=== PATIENT | female | born 1985 | race Caucasian/White ===

== ENCOUNTER 2019-03-17 06:17 | Day surgery (SDC) | payer OTHER ==
[2019-03-16 12:23] VITALS: BMI 33.7
[2019-03-17] MEDS ORDERED: ACETAMINOPHEN 325 MG TABLET (FP) PO PRN (07:30)
[2019-03-17] MEDS ORDERED: IBUPROFEN 400 MG TABLET (FP) PO PRN (07:30)
--- NOTE | 2019-03-17 07:30 | HP ---
Satellite [facility] - Chief Complaint Chief Complaint: Missed History of Present Illness: 33 yo with missed who desires Suction DC Limitations to Obtaining History: No Limitations - Past Medical History Allergies/Adverse Reactions: Allergies Allergy/AdvReac Type Severity Reaction Status Date / Time No Known Allergies Allergy Verified 03/16/19 12:18 ...LMP: 01/03/19 ...: Yes - Current Medications Current Medications: Home Medications Medication Instructions Recorded Sertraline HCl [Zoloft -] 25 mg PO DAILY 03/16/19 Satellite Physical Exam - Physical Examination General Appearance: Well Nourished, Well Developed Lung: Clear to auscultation Heart: Regular rate & rhythm Breasts: Soft, Non-Tender Abdomen: Soft, No tenderness Extremities: No edema Pelvic Exam: Within normal limits External Genitalia, Within normal limits Vagina, Within normal limits Cervix, Within normal limits [place], Other Uterus (enlarged) Neurological: Intact, Alert, Oriented Satellite Impression/Plan - Impression/Plan Impression: missed Operative Procedure: Suction DC Date to be Performed: 03/17/19
[2019-03-17] MEDS ORDERED: MIDAZOLAM HCL 2 MG/2 ML SINGLE DOSE VIAL ONE (08:42)
[2019-03-17] MEDS ORDERED: LIDOCAINE HCL/PF 2% SDV 5ML VIAL ONE (09:32)
[2019-03-17] MEDS ORDERED: PROPOFOL 20 ML ONE ×2 (09:32)
[2019-03-17] MEDS ORDERED: DEXAMETHASONE SOD PHOSPHATE 4 MG/1 ML VIAL ONE (09:32)
[2019-03-17] MEDS ORDERED: ROCURONIUM BROMIDE 50 MG/5 ML SYRINGE ONE (09:33)
--- NOTE | 2019-03-17 10:09 | OP ---
Operative Note - Note: Operative Date: 03/17/19 Pre-Operative Diagnosis: Missed Operation: Sanya CONTRERAS Findings: Enlarged uterus Post-Operative Diagnosis: Same as Pre-op Surgeon: Shruti Esposito Anesthesia: General Estimated Blood Loss (mls): 40 Operative Report Dictated: Yes
[2019-03-17] MEDS ORDERED: ONDANSETRON 4 MG/2 ML VIAL IVPUSH PRN (10:51)
[2019-03-17] MEDS ORDERED: oxyCODONE HCL 5 MG TABLET PO PRN ×2 (10:51)
[2019-03-17] MEDS ORDERED: LACTATED RINGERS SOLUTION 1,000 ML IV SCH (11:00)
[2019-03-17 11:23] VITALS: TEMP 97.9
[2019-03-17 13:06] VITALS: BP 105/68; PULSE 78
--- NOTE | 2019-03-17 13:31 | OP ---
DATE OF OPERATION: 03/17/2019 PREOPERATIVE DIAGNOSIS: Missed . OPERATION: Suction dilatation and curettage. POSTOPERATIVE DIAGNOSIS: Missed . SURGEON: Shruti Esposito MD ANESTHESIA: General. PROCEDURE: Patient was taken to the operating room, placed in dorsal lithotomy position, prepped and draped in the usual sterile fashion. A timeout was performed in accordance with hospital regulation. Speculum was placed in the vagina. Anterior lip of the cervix was grasped with a single-tooth tenaculum. Cervix was then dilated to accommodate the number curettage. Suction curettage was then performed, followed by sharp curettage. All contents were submitted to Pathology. All instruments were removed. Estimated blood loss was 40 mL. SHRUTI ESPOSITO M.D. KLEVER/[id number]
--- NOTE | 2019-03-18 11:21 | PATH ---
Surgical Pathology Report Patient Name: LEATHA WHITLEY Med. Rec. #: [id number] /Age/Gender: 1985 (Age: 33) / F Account: [id number] Location: [facility] SURGICAL Taken: 03/17/2019 Received: 03/17/2019 Reported: 03/18/2019 Physicians: Shruti Esposito M.D. Specimen(s) Received PRODUCTS OF CONCEPTION Clinical History Missed Final Diagnosis UTERINE CONTENTS, EVACUATION: CHORIONIC VILLI CONSISTENT WITH PRODUCTS OF CONCEPTION. Electronically Signed Tom Holcomb M.D. Gross Description Received in formalin labeled "products of conception," is a 13.0 x 11.0 x 0.7 cm aggregate of teresa-red soft tissue fragments. Villous tissue is identified. No somatic tissue is identified. A patient accounting representative portion is submitted in one cassette. DL/03/17/2019 saudi/03/17/2019
== END 2019-03-17 13:08 | disposition home or self-care (01) ==
LOC: JASU-SURG 06:17
PROVIDERS: ATTEND Obstetrics & Gynecology
PROC: 10D17ZZ Extraction of Products of Conception, Retained, Via Natural or Artificial Opening (ICD-10-PCS; principal; 2019-03-17 09:40)
DX: O02.1 Missed abortion (principal)
CPT/HCPCS: 86850; 86900; 86901; 88305-TC; 94760

== ENCOUNTER 2020-11-09 06:10 | Inpatient (IN) | payer OTHER ==
[2020-11-09 06:49] VITALS: BMI 34.1
[2020-11-09] MEDS ORDERED: ELECTROLYTE-148 SOLN 1,000 ML IV ONE (07:15)
[2020-11-09] MEDS ORDERED: CITRIC ACID/SODIUM CITRATE 30 ML UNIT-DOSE CUP PO ONE (07:15)
[2020-11-09] MEDS ORDERED: ELECTROLYTE-148 SOLN 1,000 ML IV SCH ×2 (07:15→08:15)
[2020-11-09] MEDS ORDERED: PROMETHAZINE HCL 25 MG/1 ML VIAL IVPUSH ONE (08:03)
[2020-11-09] MEDS ORDERED: BUTORPHANOL TARTRATE 1 MG/ML VIAL IVPB ONE (08:15)
[2020-11-09] MEDS ORDERED: DINOPROSTONE 10 MG VAGINAL SUPPOSITORY VG ONE (08:15)
[2020-11-09] MEDS ORDERED: OXYTOCIN 20 UNITS in 0.9% NS 20 UNIT/1,000 ML INFUS.BAG IV ONE (20:58)
[2020-11-09] MEDS ORDERED: LIDOCAINE HCL 1% PRESERVATIVE FREE - 30ML VIAL ONE (20:58)
[2020-11-09] MEDS: OXYTOCIN 20 UNITS in 0.9% NS 20 UNIT/1,000 ML INFUS.BAG IV SCH (21:10)
[2020-11-09] MEDS ORDERED: BISACODYL 10 MG SUPP.RECT RC PRN (21:21)
[2020-11-09] MEDS ORDERED: BENZOCAINE 28 GM HEMORRHOIDAL OINTMENT TP PRN (21:21)
[2020-11-09] MEDS ORDERED: ACETAMINOPHEN 325 MG TABLET (FP) PO PRN (21:21)
[2020-11-09] MEDS ORDERED: BENZOCAINE 20% 57 GM BOTTLE TP PRN (21:21)
[2020-11-09] MEDS ORDERED: METHYLERGONOVINE MALEATE 0.2 MG/1 ML AMP IM PRN (21:21)
[2020-11-09] MEDS ORDERED: WITCH HAZEL 50% (TUCKS) 40 PAD/JAR PAD TP PRN (21:21)
[2020-11-09] MEDS ORDERED: ACETAMINOPHEN 325 MG TABLET (FP) ONE (23:29)
[2020-11-10] MEDS ORDERED: OXYTOCIN 20 UNITS in 0.9% NS 20 UNIT/1,000 ML INFUS.BAG IV ONE (01:42)
[2020-11-10] MEDS: OXYTOCIN 20 UNITS in 0.9% NS 20 UNIT/1,000 ML INFUS.BAG IV SCH (01:45)
[2020-11-10] MEDS ORDERED: IBUPROFEN 600 MG TABLET (FP) PO ONE (07:18)
[2020-11-10] MEDS: IBUPROFEN 600 MG TABLET (FP) PO PRN (07:27)
[2020-11-10] MEDS ORDERED: FERROUS SO4 325 MG TABLET (FP) ONE (08:41)
[2020-11-10] MEDS ORDERED: PRENATAL VITAMINS W/ FOLIC ACID TABLET (FP) PO ONE (08:41)
[2020-11-10] MEDS: FERROUS SO4 325 MG TABLET (FP) PO SCH ×3 (08:43→18:43)
[2020-11-10] MEDS: PRENATAL VITAMINS W/ FOLIC ACID TABLET (FP) PO SCH (10:00)
[2020-11-10 10:10] LABS: BASO % 0.3 % (0-2.0); EOS % 2.5 % (0-4.5); HEMATOCRIT 34.1 % (32.4-45.2); HEMOGLOBIN 11.8 GM/dL (10.7-15.3); LYMPH % 18.6 % (8-40); MCH 29.9 pg (25.7-33.7); MCHC 34.5 g/dl (32.0-36.0); MEAN CELL VOLUME 86.6 fl (80-96); MEAN PLT VOLUME 9.3 fl (7.5-11.1); MONO % 5.5 % (3.8-10.2); NEUT % 73.1 % (42.8-82.8); PLATELET COUNT 177 10^3/uL (134-434); RBC 3.94 M/mm3 (3.60-5.2); RDW 14.6 % (11.6-15.6); WHITE BLOOD COUNT 13.8 K/mm3 (4.0-10.0)
[2020-11-10] MEDS ORDERED: SENNOSIDES/DOCUSATE COMBO (SENNA PLUS) TABLET (UD) PO PRN (22:00)
[2020-11-11] MEDS: PRENATAL VITAMINS W/ FOLIC ACID TABLET (FP) PO SCH (09:58)
[2020-11-11] MEDS: FERROUS SO4 325 MG TABLET (FP) PO SCH ×2 (09:58→12:00)
[2020-11-11] MEDS: IBUPROFEN 600 MG TABLET (FP) PO PRN (09:59)
[2020-11-11 14:43] VITALS: BP 136/89; PULSE 63; TEMP 98.3
== END 2020-11-11 12:45 | disposition home or self-care (01) | DRG 560 ==
LOC: JLDR 06:10 → J3W 11-10 14:00
PROVIDERS: ADMIT Obstetrics & Gynecology; ATTEND Obstetrics & Gynecology
PROC: 10E0XZZ Delivery of Products of Conception, External Approach (ICD-10-PCS; principal; 2020-11-09)
PROC: 3E0P7VZ Introduction of Hormone into Female Reproductive, Via Natural or Artificial Opening (ICD-10-PCS; 2020-11-09)
DX: O48.0 Post-term pregnancy (principal); O76 Abnormality in fetal heart rate and rhythm complicating labor and delivery; O70.0 First degree perineal laceration during delivery; Z3A.40 40 weeks gestation of pregnancy; Z37.0 Single live birth
CPT/HCPCS: 36415; 59409; 82962; 85025